=== PATIENT | female | born 1965 | race Caucasian/White ===

== ENCOUNTER 2022-05-24 12:15 | Outpatient (CLI) | payer BC | END 2022-05-24 12:16 | disposition home or self-care (01) | LOC: BICRAD 12:15 | PROVIDERS: ATTEND Family Medicine | DX: S83.422A Sprain of lateral collateral ligament of left knee, initial encounter (principal); M79.641 Pain in right hand ==

== ENCOUNTER 2022-06-02 12:32 | Outpatient (CLI) | payer BC | END 2022-06-02 12:33 | disposition home or self-care (01) | LOC: BICMAMMO 12:32 | PROVIDERS: ATTEND Family Medicine | DX: Z12.31 Encounter for screening mammogram for malignant neoplasm of breast (principal); Z80.3 Family history of malignant neoplasm of breast | CPT/HCPCS: 77063; 77067 ==

== ENCOUNTER 2022-09-29 09:53 | Outpatient (CLI) | payer BC | END 2022-09-29 09:54 | disposition home or self-care (01) | LOC: SCSMRI 09:53 | PROVIDERS: ATTEND Family Medicine | DX: S83.422D Sprain of lateral collateral ligament of left knee, subsequent encounter (principal); M23.8X2 Other internal derangements of left knee; S83.242A Other tear of medial meniscus, current injury, left knee, initial encounter; M25.462 Effusion, left knee; M65.862 Other synovitis and tenosynovitis, left lower leg; M71.22 Synovial cyst of popliteal space [Baker], left knee ==

== ENCOUNTER 2024-06-26 14:04 | Outpatient (CLI) | payer BC | END 2024-06-26 14:05 | disposition home or self-care (01) | LOC: BICMAMMO 14:04 | PROVIDERS: ATTEND Family Medicine | DX: Z12.31 Encounter for screening mammogram for malignant neoplasm of breast (principal); Z80.3 Family history of malignant neoplasm of breast | CPT/HCPCS: 77063; 77067 ==